=== PATIENT | male | born 1945 | race African-American/Black ===

== ENCOUNTER 2018-11-16 14:11 | Emergency (ER) | payer OTHER ==
[~2018-11-16 14:11] MED LIST: Iopamidol 370 76% 50 ML VIAL FS ONE
[2018-11-16 14:55] LABS: #Eosinphils 0.8 thou/uL (0.0-0.7); #Lymphocytes 1.9 thou/uL (1.20-3.40); #Monocytes 0.6 thou/uL (0.11-0.59); #Neutrophils 3.7 thou/uL (1.40-6.50); %Basophils 0.2 % (0.0-1.0); %Eosinophils 11.5 % (0.0-10.0); %Lymphocytes 27.2 % (21.0-51.0); %Monocytes 8.6 % (0.0-10.0); %Neutrophils 52.6 % (42.0-75.0); Hemoglobin 10.4 g/dL (14.0-18.0); Mean Corpuscular HGB CONC 31.8 g/dL (32.0-36.0); Mean Corpuscular Hemoglobin 27.1 pg (27.0-31.0); Mean Corpuscular Volume 85.3 fL (78.0-98.0); Mean Platelet Volume 6.9 fL (7.4-10.4); Platelet Count 474 thou/uL (130-400); RBC Distribution Width 19.3 % (11.5-14.5); Red Blood Cell (RBC) Count 3.83 mill/uL (4.70-6.10); White Blood Cell (WBC) Count 6.9 thou/uL (4.8-10.8)
[2018-11-16 15:15] LABS: ALT (SGPT) 36 U/L (8-55); AST (SGOT) 37 U/L (5-34); Albumin 3.2 g/dL (3.4-4.8); Alkaline Phosphatase 172 U/L (40-150); Anion Gap 13 mmol/L (10-20); BUN (Urea Nitrogen) 11 mg/dL (8.4-25.7); Bilirubin, Total 0.5 mg/dL (0.2-1.2); Calc. Creatinine Clearance 0 mL/min (70-130); Carbon Dioxide 25 mmol/L (23-31); Chloride 102 mmol/L (98-107); Estimated GFR-MDRD 73; Globulin 5.6 g/dL (2.4-3.5); Glucose 106 mg/dL (80-115); Potassium 3.8 mmol/L (3.5-5.1); Protein, Total 8.8 g/dL (5.8-8.1); Sodium 136 mmol/L (136-145)
--- NOTE | 2018-11-16 15:38 | RAD ---
TWO VIEW CHEST: 11/16/18 INDICATIONS: Fever. Lungs appear clear. No infiltrate identified. Small left effusion may be present which blunts the po sterior gutter. Vascular markings normal. Heart size is normal. Mediport catheter overlies the SVC. IMPRESSION: Question small left pleural effusion. Chest is otherwise unremarkable. POS: OFF
[2018-11-16 17:17] LABS: Bacteria/HPF None Seen HPF (None Seen); Bilirubin Negative (Negative); Blood, Urine 1+ (Negative); Clarity Clear (Clear); Glucose, Urine (Dipstick) Normal (Negative); Leukocyte Negative Leu/uL (Negative); Nitrite Negative (Negative); Protein, Urine (Dipstick) 10 mg/dL (Neg-Trace); Squamous Epithelial 0-3 HPF (0-3); Urobilinogen Normal mg/dL (Less than 2); WBC/HPF 0-3 HPF (0-3)
[2018-11-16] MEDS ORDERED: Metoprolol Tartrate 50 MG TAB ONE (17:57)
--- NOTE | 2018-11-16 18:28 | CT ---
CT ABDOMEN AND PELVIS WITHOUT IV CONTRAST: 11/16/18 Oral contrast was administered. INDICATIONS: Abdominal pain. History of prior colon resection. No comparison studies. FINDINGS: Lung bases are clear. There are numerous low density lesions seen throughout the liver. The largest is seen in the lateral left lobe region measuring up to 6 cm. Numerous other lesions are seen too numerous to count. Finding s indicate metastatic disease to the liver. Spleen and pancreas unremarkable. There is a percutaneous pigtail drainage catheter which enters the upper abdomen to the right of midl ine. It is located adjacent to the transverse colon. There is inflammatory change at this location; h owever, no evidence of fluid or abscess collection. Patient appears to be post right colectomy and th is drainage catheter is near the anastomosis. Small bowel loops are normal caliber. The left transverse colon and descending colon appear unremarka ble with scattered diverticula. Adrenal glands unremarkable. Kidneys show no evidence of hydronephrosis. There is a cystic lesion pos terior left kidney measuring 1.8 cm. Urinary bladder mildly distended but otherwise unremarkable. Aor ta normal caliber. No free fluid. Suture material seen anterior abdominal wall in the lower abdomen o n the left. Osseous structures are unremarkable. IMPRESSION: 1. Numerous low density lesions throughout the liver consistent with diffuse metastatic disease to the liver. 2. A percutaneous pigtail drainage catheter enters the upper abdomen to the right of midline. Th e pigtail is positioned near the anastomosis in the upper anterior abdomen. There are inflammatory ch anges at this location; however, no fluid or abscess collection is identified. POS: AGW
== END 2018-11-16 19:50 | disposition home or self-care (01) ==
LOC: ERS 14:11
DX: R11.2 Nausea with vomiting, unspecified (principal); C18.9 Malignant neoplasm of colon, unspecified; F43.10 Post-traumatic stress disorder, unspecified; I10 Essential (primary) hypertension; E11.9 Type 2 diabetes mellitus without complications; Z79.899 Other long term (current) drug therapy; Z79.82 Long term (current) use of aspirin
CPT/HCPCS: 36415; 71046; 74176; 80053; 81003; 81015; 83605; 85025; 87040; 93005; Q9967

== ENCOUNTER 2018-12-21 18:21 | Emergency (ER) | payer OTHER ==
[2018-12-21] MEDS ORDERED: HYDROcodone/Acetaminophen 5/325 mg Tablet ONE (21:43)
== END 2018-12-22 00:41 | disposition short-term general hospital (02) ==
LOC: ERS 18:21
DX: T81.49XA Infection following a procedure, other surgical site, initial encounter (principal); R50.9 Fever, unspecified; I10 Essential (primary) hypertension; Z79.899 Other long term (current) drug therapy
CPT/HCPCS: 99284